=== PATIENT | female | born 1990 | race Caucasian/White ===

== ENCOUNTER 2017-07-22 21:36 | Emergency (ER) | payer OTHER ==
[~2017-07-22] VITALS: Ht 162.6 cm; Wt 86.6 kg
[~2017-07-22 21:36] MED LIST: ANUSOL-HC25 MG RECTAL; BUTALB-APAP-CA1 EACH PO; CELEXA 20 MG TA20 MG PO; CLARITIN10 MG PO; HYDROCORTISONE30 G9 RECTAL; IBUPROFEN 800800 M1 PO; KEFLEX500 MG PO; METOPROLOL SUCC25 M1 PO; NORFLEX100 MG PO; PRINIVIL5 MG; PRINIVIL5 MG PO; TESSALON PERLE100 MG PO; TOPROL XL25 MG PO; TRINATE TABLET1 TAB PO; TUSSIONEX PENN473 ML PO; ULTRAM 50MG TAB50 MG PO; ZOLOFT50 MG
[2017-07-22] MEDS ORDERED: ASPIR 8181 MG (21:44)
[2017-07-22] MEDS ORDERED: KEFLEX500 M1 PO (22:21)
[2017-07-22 22:42] VITALS: BP 123/66
== END 2017-07-22 22:43 | disposition home or self-care (01) ==
LOC: M.ERS 21:36
DX: J01.90 Acute sinusitis, unspecified (principal); I10 Essential (primary) hypertension; F32.9 Major depressive disorder, single episode, unspecified; Z88.8 Allergy status to other drugs, medicaments and biological substances

== ENCOUNTER 2019-12-12 18:39 | Emergency (ER) | payer OTHER, MEDICAID ==
[~2019-12-12] VITALS: Ht 162.6 cm; Wt 81.7 kg
--- NOTE | ~2019-12-12 | CON ---
[address] [address] CONSULTATION Name: JONA MONAE Room: [facility]#: [id number] Admission: 12/12/19 Attend Phys: Discharge: 12/12/19 Date of : 89 Report #: [id number] THIS REPORT FOR: //name// cc: SJ GIORDANO KEVIN ~ THIS REPORT FOR: //name// CC: Hilary GIORDANO DATE OF SERVICE: 12/12/2019 HISTORY OF PRESENT ILLNESS: This is a pleasant 29-year-old female with past medical history significant for hypertension, depression, who is presenting for dysphagia and food bolus impaction. The patient reports symptoms began soon after her dinner. This is the first time she has had these symptoms. Denies episodes of prior dysphagia, chest pain in the past. The patient is unable to swallow or keep secretions down. She denies any abdominal pain at this time. PAST MEDICAL HISTORY: Hypertension. PAST SURGICAL HISTORY: Tonsillectomy. SOCIAL HISTORY: The patient denies smoking, alcohol or recreational drug use. FAMILY HISTORY: No family history of colon cancer or history of neoplasia. PHYSICAL EXAMINATION: VITAL SIGNS: Temperature 36.8, pulse rate 88, respirations 15, blood pressure 125/71, pulse ox 100% on room air. GENERAL: The patient is alert, awake, oriented x 3. HEENT: Pupils equal, round, reactive to light and accommodation. Mucous membranes are moist. There is no congestion. LUNGS: Clear to auscultation bilaterally. CARDIOVASCULAR: Rate and rhythm regular, S1, S2 present. ABDOMEN: Soft. There is no distention, guarding or rigidity. EXTREMITIES: Warm, well perfused. There is no edema. SKIN: Warm and dry. ASSESSMENT AND PLAN: Pleasant 29-year-old female with past medical history significant for hypertension, depression, presenting for [place] [address] CONSULTATION Name: ANNALISA MONAECris Cohen Room: [facility]#: [id number] Admission: 12/12/19 Attend Phys: Discharge: 12/12/19 Date of : 89 Report #: [id number] We will proceed with EGD and make further recommendations based on results of EGD. By: [id number] Daley MD /benja
[~2019-12-12 18:39] MED LIST changes: +ASPIR 8181 MG; +KEFLEX500 M1 PO
[2019-12-12] MEDS ORDERED: ZYRTEC10 M5 PO (18:43)
[2019-12-12 19:01] LABS: ABSOLUTE BASOPHILS 0.1 thou/uL (0.0-0.2); ABSOLUTE EOSINOPHILS 0.8 thou/uL (0.0-0.7); ABSOLUTE LYMPHOCYTES 2.3 thou/uL (0.8-5.3); ABSOLUTE MONOCYTES 0.4 thou/uL (0.0-1.2); ABSOLUTE NEUTROPHILS 6.2 thou/uL (1.6-8.1); BASOPHILS 0.7 %; EOSINOPHILS 8.4 %; HEMATOCRIT 42.3 % (37.0-47.0); HEMOGLOBIN 14.8 gm/dL (12.0-15.0); LYMPHOCYTES 23.3 %; MCH 29.5 pg (26.0-34.0); MCHC 34.9 g/dL (28.0-37.0); MCV 84.5 fL (80.0-100.0); MONOCYTES 4.3 %; MPV 9.3 fl. (7.2-11.1); NUCLEATED RBCS 0 /100WBC; PLATELET COUNT* 238 thou/uL (150-400); POLYS 63.3 %; RBC 5.01 mil/uL (4.20-5.00); WBC 9.9 thou/uL (4.0-11.0)
[2019-12-12 19:14] LABS: APTT 24.5 Seconds (25.0-31.3); CALCIUM 9.1 mg/dL (8.5-10.1); CREATININE 0.7 mg/dL (0.6-1.3); POTASSIUM 3.5 mmol/L (3.5-5.1); PROTIME 10.6 Seconds (9.20-11.50)
[2019-12-12 19:30] LABS: ALBUMIN 4.3 g/dL (3.4-5.0); TOTAL BILIRUBIN 0.3 mg/dL (<0.1-1.0); TOTAL PROTEIN 7.4 g/dL (6.4-8.2)
[2019-12-12 22:00] VITALS: BP 125/71
--- NOTE | 2019-12-17 10:24 | PATH ---
[address] [address] PATHOLOGY RPT PROCEDURE Name: DELPHINE [facility]AE [id number]: 12/12/19 Date of : 89 Discharge: 12/12/19 Report #: [id number] Path Case #: [id number] [facility] Accession Number: [id number] . 01 Material submitted: . esophagus - ESOPHAGEAL BIOPSY . 01 Clinical history: . FOOD BOLUS . 02 Diagnosis: Esophageal biopsy: - Typical of eosinophilic (allergic) esophagitis. See comment. (MEGHAN:saroj; 12/15/2019) [facility] 12/15/2019 1154 Local . 02 Comment: The biopsies reveal benign esophageal mucosa with prominent basilar cell hyperplasia and an abundance of eosinophils ranging from approximately 20-30 per high power field with some surface aggregation. (MEGHAN:saroj; 12/15/2019) . 02 Electronically signed: . Gibson Pina MD, Pathologist NPI- [id number] . 01 Gross description: . The specimen is received in formalin, labeled "Delphine Monae, esophageal biopsy". Received is a segment of pale pereira soft tissue measuring 0.5 cm in maximum dimensions. The specimen is submitted entirely in cassette A1. (CAA; 12/14/2019) QA/QA 12/14/2019 1528 Local . 02 Pathologist provided ICD-10: K22.9 . 02 CPT . 607022 Specimen Comment: A courtesy copy of this report has been sent to [phone] Specimen Comment: Report sent to Specimen Comment: A duplicate report has been generated due to demographic updates. Performed at: [address] [id number] MD Víctor Rice MD Phone: [phone] Performed at: [address] [address] PATHOLOGY RPT PROCEDURE Name: DELPHINE MONAE Room: [facility]#: [id number] Admission: 12/12/19 Date of : 89 Discharge: 12/12/19 Report #: [id number] Path Case #: [id number] [address] [place], [place] [id number] MD Gibson Pina MD Phone: [phone]
== END 2019-12-12 22:01 | disposition still patient (30) ==
LOC: M.ERS 18:39 → M.GI 18:39
PROVIDERS: Nurse Practitioner Family
DX: T17.228A Food in pharynx causing other injury, initial encounter (principal); R11.2 Nausea with vomiting, unspecified; I10 Essential (primary) hypertension; F32.9 Major depressive disorder, single episode, unspecified; Z20.828 Contact with and (suspected) exposure to other viral communicable diseases; Z90.49 Acquired absence of other specified parts of digestive tract; Z91.018 Allergy to other foods; Z91.012 Allergy to eggs; Z88.8 Allergy status to other drugs, medicaments and biological substances; X58.XXXA Exposure to other specified factors, initial encounter; Y93.89 Activity, other specified; Y92.89 Other specified places as the place of occurrence of the external cause; Y99.8 Other external cause status

== ENCOUNTER 2020-01-27 16:52 | Emergency (ER) | payer OTHER, MEDICAID ==
[~2020-01-27] VITALS: Ht 162.6 cm; Wt 81.7 kg
[~2020-01-27 16:52] MED LIST changes: +ZYRTEC10 M5 PO
[2020-01-27 17:56] LABS: INFLUENZA A ANTIGEN Negative (Negative); INFLUENZA B ANTIGEN Negative (Negative)
[2020-01-27] MEDS ORDERED: PREDNISONE 20 M20 MG PO (18:08)
[2020-01-27 18:16] VITALS: BP 163/84
== END 2020-01-27 18:17 | disposition home or self-care (01) ==
LOC: M.ERS 16:52
PROVIDERS: Nurse Practitioner Family
DX: J98.8 Other specified respiratory disorders (principal); Z20.828 Contact with and (suspected) exposure to other viral communicable diseases; I10 Essential (primary) hypertension; Z79.899 Other long term (current) drug therapy; Z91.012 Allergy to eggs; Z88.8 Allergy status to other drugs, medicaments and biological substances; Z91.018 Allergy to other foods

== ENCOUNTER 2020-04-30 18:52 | Emergency (ER) | payer OTHER, MEDICAID ==
[~2020-04-30] VITALS: Ht 165.1 cm; Wt 84.8 kg
[~2020-04-30 18:52] MED LIST changes: +PREDNISONE 20 M20 MG PO
[2020-04-30] MEDS ORDERED: FLOVENT HFA 4444 MCG INH (19:18)
[2020-04-30] MEDS ORDERED: AUGMENTIN 875-1 EACH PO (19:55)
[2020-04-30 20:10] VITALS: BP 125/85
== END 2020-04-30 20:11 | disposition home or self-care (01) ==
LOC: M.ERS 18:52
DX: J01.00 Acute maxillary sinusitis, unspecified (principal); Z20.828 Contact with and (suspected) exposure to other viral communicable diseases; I10 Essential (primary) hypertension; Z88.8 Allergy status to other drugs, medicaments and biological substances; Z91.012 Allergy to eggs; Z91.018 Allergy to other foods; Z90.89 Acquired absence of other organs

== ENCOUNTER 2020-07-14 17:13 | Emergency (ER) | payer OTHER, MEDICAID ==
[~2020-07-14] VITALS: Ht 165.1 cm; Wt 84.8 kg
[~2020-07-14 17:13] MED LIST changes: +AUGMENTIN 875-1 EACH PO; +FLOVENT HFA 4444 MCG INH
[2020-07-14] MEDS ORDERED: SERTRALINE HCL100 MG PO (17:26)
[2020-07-14] MEDS ORDERED: KEFLEX500 M1 PO (18:20)
[2020-07-14] MEDS ORDERED: APAP W/CODEINE1 TA2 PO (18:20)
[2020-07-14 18:26] VITALS: BP 124/76
== END 2020-07-14 18:27 | disposition home or self-care (01) ==
LOC: M.ERS 17:13
DX: L72.9 Follicular cyst of the skin and subcutaneous tissue, unspecified (principal); I10 Essential (primary) hypertension; F32.9 Major depressive disorder, single episode, unspecified; Z90.89 Acquired absence of other organs; Z79.899 Other long term (current) drug therapy; Z91.012 Allergy to eggs; Z88.8 Allergy status to other drugs, medicaments and biological substances; Z91.018 Allergy to other foods

== ENCOUNTER 2020-07-16 15:22 | Emergency (ER) | payer OTHER, MEDICAID ==
[~2020-07-16] VITALS: Ht 165.1 cm; Wt 84.8 kg
[~2020-07-16 15:22] MED LIST changes: +APAP W/CODEINE1 TA2 PO; +SERTRALINE HCL100 MG PO
[2020-07-16] MEDS ORDERED: IBUPROFEN 800800 M1 PO (16:36)
[2020-07-16 16:44] VITALS: BP 140/65
== END 2020-07-16 16:45 | disposition home or self-care (01) ==
LOC: M.ERS 15:22
DX: L72.0 Epidermal cyst (principal); I10 Essential (primary) hypertension; F32.9 Major depressive disorder, single episode, unspecified; Z90.89 Acquired absence of other organs; Z79.899 Other long term (current) drug therapy; Z79.2 Long term (current) use of antibiotics; Z91.012 Allergy to eggs; Z88.8 Allergy status to other drugs, medicaments and biological substances; Z91.018 Allergy to other foods

== ENCOUNTER 2020-08-13 17:27 | Emergency (ER) | payer OTHER, MEDICAID ==
[~2020-08-13] VITALS: Ht 152.4 cm; Wt 86.6 kg
[2020-08-13 17:38] VITALS: BP 135/92
[2020-08-13] MEDS ORDERED: ZYRTEC10 M5 PO (17:41)
[2020-08-13] MEDS ORDERED: BACTRIM DS TAB1 EAC1 PO (17:42)
== END 2020-08-13 18:01 | disposition home or self-care (01) ==
LOC: M.ERS 17:27
DX: L03.012 Cellulitis of left finger (principal); I10 Essential (primary) hypertension; Z91.012 Allergy to eggs; Z91.018 Allergy to other foods; Z88.8 Allergy status to other drugs, medicaments and biological substances; Z90.89 Acquired absence of other organs

== ENCOUNTER 2020-08-23 22:02 | Emergency (ER) | payer OTHER, MEDICAID ==
[~2020-08-23] VITALS: Ht 162.6 cm; Wt 86.2 kg
[~2020-08-23 22:02] MED LIST changes: +BACTRIM DS TAB1 EAC1 PO
[2020-08-23 22:37] LABS: ABSOLUTE BASOPHILS 0.1 thou/uL (0.0-0.2); ABSOLUTE EOSINOPHILS 0.8 thou/uL (0.0-0.7); ABSOLUTE LYMPHOCYTES 2.9 thou/uL (0.8-5.3); ABSOLUTE MONOCYTES 0.6 thou/uL (0.0-1.2); ABSOLUTE NEUTROPHILS 5.5 thou/uL (1.6-8.1); BASOPHILS 1.3 %; EOSINOPHILS 8.4 %; HEMATOCRIT 40.2 % (37.0-47.0); HEMOGLOBIN 13.6 gm/dL (12.0-15.0); MCH 28.9 pg (26.0-34.0); MCHC 33.9 g/dL (28.0-37.0); MCV 85.1 fL (80.0-100.0); MONOCYTES 6.3 %; MPV 8.9 fl. (7.2-11.1); NUCLEATED RBCS 0 /100WBC; PLATELET COUNT* 250 thou/uL (150-400); RBC 4.73 mil/uL (4.20-5.00); WBC 9.9 thou/uL (4.0-11.0)
[2020-08-23 22:48] LABS: CREATININE 0.6 mg/dL (0.6-1.3); POTASSIUM 3.6 mmol/L (3.5-5.1)
[2020-08-23 22:59] LABS: ALBUMIN 4.1 g/dL (3.4-5.0); TOTAL BILIRUBIN 0.2 mg/dL (<0.1-1.0); TOTAL PROTEIN 7.3 g/dL (6.4-8.2)
[2020-08-23] MEDS ORDERED: CEPHALEXIN 250250 M1 PO (23:27)
[2020-08-23] MEDS ORDERED: PREDNISONE50 MG PO (23:33)
[2020-08-23 23:44] VITALS: BP 181/91
== END 2020-08-23 23:44 | disposition home or self-care (01) ==
LOC: M.ERS 22:02
PROVIDERS: Emergency Medicine
DX: L03.012 Cellulitis of left finger (principal); L30.9 Dermatitis, unspecified; I10 Essential (primary) hypertension; Z91.012 Allergy to eggs; Z88.8 Allergy status to other drugs, medicaments and biological substances; Z79.899 Other long term (current) drug therapy; Z90.89 Acquired absence of other organs